=== PATIENT | female | born 1990 | race Two or more races ===

== ENCOUNTER 2018-02-13 09:35 | Emergency (ER) | payer OTHER ==
[2018-02-13 10:06] VITALS: BP 108/75; PULSE 75; RESP 16; TEMP 97.6; O2SAT 100
[2018-02-13] MEDS ORDERED: KETOROLAC TROMETHAMINE 30 MG/ML SOL ONE (11:00)
[2018-02-13] MEDS ORDERED: KETOROLAC TROMETHAMINE 30 MG/ML SOL IM ONE (11:00)
== END 2018-02-13 12:11 | disposition home or self-care (01) | DRG 914 ==
LOC: ED 09:35
DX: S59.901A Unspecified injury of right elbow, initial encounter (principal); M25.421 Effusion, right elbow; S50.01XA Contusion of right elbow, initial encounter; W19.XXXA Unspecified fall, initial encounter
CPT/HCPCS: 73070; 84703; 96372; 99283; 99285; J1885